=== PATIENT | male | born 1960 | race Caucasian/White ===

== ENCOUNTER → 2017-07-05 | Outpatient (CLI) | payer BC, MEDICARE ==
--- NOTE | 2017-07-05 22:49 | MR ---
EXAMINATION TYPE: MR brain wo/w con DATE OF EXAM: 07/05/2017 COMPARISON: Prior MRI brain October 03, 2015 HISTORY: Headaches and stroke per patient with bilateral hearing loss. Convulsions and cerebral infar ction per order. TECHNIQUE: Multiplanar, multisequence images of the brain and brainstem is performed without and with IV contras t, utilizing 12 mL intravenous Gadavist . FINDINGS: Diffusion weighted images demonstrate no evidence of a recent infarct or other diffusion ab normality. There is no worrisome extra-axial fluid collection. The ventricular system and cisternal spaces are normal in size and appearance. The brain volume is age appropriate. T2 coronal weighted images show hippocampal gyri to appear symmetric and felt within normal limits. There are scattered f oci of T2 hyperintensity seen throughout the white matter bilaterally. Approximately 20-30 scattered lesions are seen, largest posterior left frontal lobe measures 7 mm and right parietal level measures 8 mm on long axis on axial image 20 not significantly changed from prior. Midline structures demonstrate normal morphology. The craniocervical junction appears within normal limits. Post contrast images demonstrate no abnormal enhancement. The dural venous sinuses appear pa tent. There is increased T2 signal nearly completely filling left maxillary sinus with peripheral enh ancement similar to prior. There is mild mucosal thickening involving anterior ethmoid sinuses bilate rally similar to prior. The globes are intact bilaterally. IMPRESSION: Stable moderate nonspecific white matter changes. No new or enhancing lesions are seen. S table chronic paranasal sinus disease.
== END | disposition home or self-care (01) ==
LOC: RADMRIMAIN 08:56
PROVIDERS: ATTEND Psychiatry & Neurology Neurology
DX: R90.89 Other abnormal findings on diagnostic imaging of central nervous system (principal); R56.9 Unspecified convulsions; Z86.73 Personal history of transient ischemic attack (TIA), and cerebral infarction without residual deficits
CPT/HCPCS: 82565; 84520; 70553; 36415; A9581

== ENCOUNTER 2021-10-04 11:11 | Emergency (ER) | payer BC, MEDICARE ==
[2021-10-04 11:24] VITALS: BP 126/67; PULSE 76; RESP 20; TEMP 99.1
[2021-10-04] MEDS ORDERED: APIXABAN 5 MG TAB PO STA (11:38)
--- NOTE | 2021-10-04 11:41 | ED ---
Extremity Problem HPI - General Chief complaint: Extremity Problem,Nontraumatic Stated complaint: blood clot Time Seen by Provider: 10/04/21 11:27 Source: patient, RN notes reviewed Mode of arrival: wheelchair Limitations: no limitations - History of Present Illness Initial comments: 60-year-old male presents emergency Department with chief complaint of positive ultrasound left leg. Patient states that he's been having pain for a week but the pain is deciding. Patient did see primary care physician and neurologist this week. Patient ultrasound today showing positive DVT. Patient denies any chest pain shortness breath. She'll follow history patient states he has not been moving around as much and is a daily smoker. - Related Data Previous Rx's Medication Instructions Recorded Apixaban [Eliquis Starter Pack 0 mg PO DIRECTED 30 Days #1 10/04/21 (for VTE)] packet Allergies Allergy/AdvReac Type Severity Reaction Status Date / Time onabotulinumtoxinA Allergy Dyspnea Verified 10/04/21 11:25 [From Botox] Review of Systems ROS Statement: Those systems with pertinent positive or pertinent negative responses have been documented in the HPI. ROS Other: All systems not noted in ROS Statement are negative. Past Medical History Past Medical History: CVA/TIA, Hypertension Additional Past Medical History / Comment(s): vertigo, chemical poisoning History of Any Multi-Drug Resistant Organisms: None Reported Past Surgical History: Orthopedic Surgery Past Psychological History: No Psychological Hx Reported Smoking Status: Current every day smoker Past Alcohol Use History: None Reported Past Drug Use History: None Reported General Exam Limitations: no limitations General appearance: alert, in no apparent distress Head exam: Present: atraumatic, normocephalic, normal inspection Neck exam: Present: normal inspection. Absent: tenderness, meningismus, lymphadenopathy Respiratory exam: Present: normal lung sounds bilaterally. Absent: respiratory distress, wheezes, rales, rhonchi, stridor Cardiovascular Exam: Present: regular rate, normal rhythm, normal heart sounds. Absent: systolic murmur, diastolic murmur, rubs, gallop, clicks Extremities exam: Present: other (Mild left leg swelling minimal tenderness pulses equal bilaterally equal color equal warmth) Course Vital Signs 10/04/21 11:18 Temperature 99.1 F Pulse Rate 76 Respiratory 20 Rate Blood Pressure 126/67 O2 Sat by Pulse 97 Oximetry Medical Decision Making - Medical Decision Making Patient has evidence of DVT in the popliteal vein patient has no chest pain or shortness breath patient is not tachycardic no hypoxia. Patient was given Alquist will be discharged with a prescription for Alquist and close follow-up return parameters were discussed rediscussed head injuries patient's states she is very familiar as she was on Alquist. Disposition Clinical Impression: Left leg DVT Disposition: HOME SELF-CARE Condition: Stable Instructions (If sedation given, give patient instructions): Deep Vein Thrombosis (ED) Additional Instructions: Please return to the Emergency Department if symptoms worsen or any other concerns. Prescriptions: Apixaban [Eliquis Starter Pack (for VTE)] 0 mg PO DIRECTED 30 Days #1 packet Is patient prescribed a controlled substance at d/c from ED?: No Referrals: Jazmin Vegas DO [Primary Care Provider] - 1-2 days Time of Disposition: 11:41
== END 2021-10-04 11:53 | disposition home or self-care (01) ==
LOC: EC 11:11
DX: I82.4Z2 Acute embolism and thrombosis of unspecified deep veins of left distal lower extremity (principal); I10 Essential (primary) hypertension; Z86.718 Personal history of other venous thrombosis and embolism; F17.200 Nicotine dependence, unspecified, uncomplicated; Z88.6 Allergy status to analgesic agent
CPT/HCPCS: 99284